=== PATIENT | female | born 1955 | race Caucasian/White ===

== ENCOUNTER → 2017-03-18 | Outpatient (CLI) | payer OTHER | LOC: BRMIMAGING 13:55 | DX: Z12.31 Encounter for screening mammogram for malignant neoplasm of breast (principal) | CPT/HCPCS: G0202 ==

== ENCOUNTER → 2018-04-05 | Outpatient (CLI) | payer OTHER | LOC: BRMIMAGING 07:45 | PROVIDERS: ATTEND Obstetrics & Gynecology Gynecology | DX: Z12.31 Encounter for screening mammogram for malignant neoplasm of breast (principal) ==

== ENCOUNTER → 2019-04-11 | Outpatient (CLI) | payer OTHER | LOC: BRMIMAGING 07:53 ==